=== PATIENT | female | born 2000 | race Caucasian/White ===

== ENCOUNTER 2023-02-04 23:28 | Emergency (ER) | payer OTHER ==
[~2023-02-04] VITALS: Ht 157.5 cm; Wt 52.0 kg
[2023-02-05] MEDS ORDERED: CEPH500C PO (02:17)
[2023-02-05] MEDS ORDERED: ACET500T58 PO (02:17)
[2023-02-05 02:19] VITALS: BP 126/85
== END 2023-02-05 02:53 | disposition home or self-care (01) ==
LOC: ER 23:28
DX: S60.311A Abrasion of right thumb, initial encounter (principal); W26.8XXA Contact with other sharp object(s), not elsewhere classified, initial encounter; Y93.89 Activity, other specified; Y92.89 Other specified places as the place of occurrence of the external cause; Y99.8 Other external cause status